=== PATIENT | female | born 1990 | race Caucasian/White ===

== ENCOUNTER → 2019-01-03 | Outpatient (CLI) | payer OTHER ==
--- NOTE | 2019-01-03 22:05 | REP ---
Clinical: Preoperative assessment . Comparison: None . Technique: PA and lateral. Findings: The mediastinum and cardiac silhouette are normal. The lung alas are clear and without acute consolidation, effusion, or pneumothorax. The skeletal structures are intact and normal. Impression: 1. No acute cardiopulmonary process. Electronically Signed by Jean-Pierre Marcelo MD 01/03/2019 09:56 P
== END ==
LOC: M SMT 08:48
PROVIDERS: ATTEND Nurse Practitioner Family
DX: Z01.811 Encounter for preprocedural respiratory examination (principal)

== ENCOUNTER → 2019-01-18 | Outpatient (CLI) | payer OTHER ==
--- NOTE | 2019-01-18 08:00 | PFTRPT ---
Height: 65.00 Inches Weight: 160.00 Lbs BSA: 1.80 Diagnosis: Z01.811 DATE OF PROCEDURE: 01/18/2019 ORDERED BY: Nicole Allen Spirometry: Pre and post bronchodilator study of excellent technical quality. Forced vital capacity normal. FEV1 in proportion. Obstructive index is, therefore, normal. Flow Volume Loop: Expiratory limb of the flow volume loop is normal. No significant bronchodilator response identified. Lung Volumes: Total lung capacity normal. Residual volume is in proportion. Diffusing Capacity: Diffusing capacity normal. Hemoglobin: Hemoglobin acceptable at 12.8. Airway Mechanics: Airway resistance and conductance are normal. IMPRESSION: Normal study. MTDD
== END ==
LOC: M CARPUL 07:21
PROVIDERS: ATTEND Nurse Practitioner Family
DX: Z01.811 Encounter for preprocedural respiratory examination (principal)

== ENCOUNTER → 2019-01-25 | Outpatient (CLI) | payer OTHER ==
[~2019-01-25] MED LIST: METHACHOLINE KIT (J7674) INH ONE
--- NOTE | 2019-01-25 08:07 | PFTRPT ---
Height: 65.00 Inches Weight: 160.00 Lbs BSA: 1.80 Diagnosis: Z01.811 DATE OF PROCEDURE: 01/25/2019 ORDERED BY: Nicole Allen INTERPRETATION: Study of excellent technical quality. Under protocol, methacholine was administered. Even after a maximal dose of 25 mg (188.875 CDUs), no provocation dose ever achieved. IMPRESSION: Negative methacholine challenge study. MTDD
== END ==
LOC: M CARPUL 07:20
PROVIDERS: ATTEND Nurse Practitioner Family
DX: Z01.811 Encounter for preprocedural respiratory examination (principal)